=== PATIENT | female | born 1985 | race Caucasian/White ===

== ENCOUNTER → 2016-08-29 | Outpatient (REF) | payer MEDICAID, OTHER, SELFPAY ==
[2016-08-29 20:17] LABS: ALBUMIN 4.3 GM/DL (3.2-5.2); ALBUMIN/GLOBULIN RATIO 1.48 (1.00-1.93); ALKALINE PHOSPHATASE 67 U/L (45-117); ALT/SGPT 19 U/L (12-78); ANION GAP 3 MEQ/L (8-16); AST/SGOT 11 U/L (15-37); BILIRUBIN,TOTAL 0.4 MG/DL (0.2-1.0); BLOOD UREA NITROGEN 12 MG/DL (7-18); CALCIUM LEVEL 9.1 MG/DL (8.5-10.1); CARBON DIOXIDE LEVEL 30 MEQ/L (21-32); CHLORIDE LEVEL 105 MEQ/L (98-107); CHOLESTEROL LEVEL 210 MG/DL (<200); CREATININE FOR GFR 0.63 MG/DL (0.55-1.02); FREE T4 1.02 NG/DL (0.76-1.46); GLOMERULAR FILTRATION RATE > 60.0 (>60); GLUCOSE, FASTING 89 MG/DL (70-105); POTASSIUM SERUM 4.1 MEQ/L (3.5-5.1); SODIUM LEVEL 138 MEQ/L (136-145); TOTAL PROTEIN 7.2 GM/DL (6.4-8.2); TRIGLYCERIDES LEVEL 66 MG/DL (<150)
[2016-09-07 00:06] LABS: ANTI-DIURETIC HORMONE 1.2 pg/mL (0.0-4.7)
== END ==
LOC: M LAB REF 16:49
PROVIDERS: ATTEND Nurse Practitioner Family
DX: E04.0 Nontoxic diffuse goiter (principal); R19.7 Diarrhea, unspecified; R35.8 Other polyuria

== ENCOUNTER → 2016-09-28 | Outpatient (CLI) | payer OTHER ==
[~2016-09-28] VITALS: Ht 167.6 cm; Wt 56.7 kg
[~2016-09-28] MED LIST: LIDOCAINE 2% INJ 100 MG/5 ML SDV (FOR ANES.) As Ordered ONE; NS 1,000 ML IV ONE; PROPOFOL 200 MG/20 ML VIAL As Ordered ONE
--- NOTE | 2016-09-28 15:28 | ROOR ---
Patient Name: Tessy Batres Procedure Date: 09/28/2016 3:07 PM Date of : 1985 Age: 31 Room: [facility] Gender: Female Note Status: Finalized Procedure: Colonoscopy Indications: Generalized abdominal pain, Irritable bowel syndrome with constipation, Constipation Providers: Singh VELEZ MD Referring MD: Abiola IVEY NP Requesting Provider: Medicines: Monitored Anesthesia Care Complications: No immediate complications. Procedure: Pre-Anesthesia Assessment: - The heart rate, respiratory rate, oxygen saturations, blood pressure, adequacy of pulmonary ventilation, and response to care were monitored throughout the procedure. The Colonoscope was introduced through the anus and advanced to 5 cm into the ileum. The colonoscopy was performed without difficulty. The patient tolerated the procedure well. The quality of the bowel preparation was adequate. Findings: The perianal and digital rectal examinations were normal. Small Internal Hemorrhoids. The entire examined colon appeared normal on direct and retroflexion views. The terminal ileum appeared normal. Impression: - Small Internal Hemorrhoids. - The entire examined colon is normal on direct and retroflexion views. - The examined portion of the ileum was normal. - No specimens collected. Recommendation: - Continue present medications. Singh Velez MD Singh VELEZ MD 09/28/2016 3:28:07 PM This report has been signed electronically. Number of Addenda: 0 Note Initiated On: 09/28/2016 3:07 PM Estimated Blood Loss: Estimated blood loss: none.
[2016-09-28 15:55] VITALS: BP 122/82
== END | disposition home or self-care (01) ==
LOC: M OPP 14:03
PROVIDERS: ATTEND Internal Medicine Gastroenterology
DX: K58.1 Irritable bowel syndrome with constipation (principal); K64.8 Other hemorrhoids

== ENCOUNTER → 2017-02-08 | Outpatient (CLI) | payer OTHER ==
[2017-02-08 18:39] LABS: FREE T4 0.96 NG/DL (0.76-1.46)
== END ==
LOC: M SMT 11:55
PROVIDERS: ATTEND Physician Assistant Medical
DX: K59.04 Chronic idiopathic constipation (principal)

== ENCOUNTER → 2017-02-23 | Outpatient (CLI) | payer OTHER ==
[~2017-02-23] MED LIST changes: +GASTROGRAFIN SOLUTION 30ML (Q9963) As Ordered ONE; +ISOVUE-370 76% 100ML VIAL (Q9967) As Ordered ONE; -LIDOCAINE 2% INJ 100 MG/5 ML SDV (FOR ANES.) As Ordered ONE; -NS 1,000 ML IV ONE; -PROPOFOL 200 MG/20 ML VIAL As Ordered ONE
--- NOTE | 2017-02-23 15:29 | REP ---
CT abdomen and pelvis with IV and oral contrast: History: Abdominal pain. Change in bowel habits. CT contrast dose: 100 mL of intravenous Isovue 370. CT findings: Preliminary digital hose sprayer radiograph is unremarkable. The lung bases are clear. There is a small hemangioma in the right lobe of the liver near the inferior vena cava. The hemangioma measures 1.6 cm in diameter. No other focal liver lesion is seen. Spleen is unremarkable. There is a small accessory splenule anteriorly. No adrenal lesion is seen. The kidneys enhance symmetrically and show bilateral lobation, but are morphologically intact. No hydronephrosis or masses seen. No calculus is observed. No pancreatic abnormality is seen. The gallbladder is unremarkable. Small and large intestinal bowel loops are normal in the upper abdomen. A normal appendix is seen retrocecal. The uterus is retroverted and retroflexed. No adnexal pathology is seen. Urinary bladder is intact. No abdominal wall defect is observed. Bowel loops are normal in the pelvis. No bony destructive lesion is seen. Impression: No acute intra-abdominal abnormality. Normal appendix seen. Retroverted uterus. Signed by Kaden García MD 02/23/2017 03:59 P
== END ==
LOC: M RAD 12:01
PROVIDERS: ATTEND Physician Assistant Medical
DX: R10.9 Unspecified abdominal pain (principal); R19.4 Change in bowel habit

== ENCOUNTER → 2017-03-29 | Outpatient (REF) | payer OTHER | LOC: M LAB REF 17:23 | PROVIDERS: ATTEND Specialist | DX: Z12.4 Encounter for screening for malignant neoplasm of cervix (principal) ==

== ENCOUNTER 2017-05-04 07:46 | Day surgery (SDC) | payer OTHER ==
[~2017-05-04] VITALS: Ht 167.6 cm; Wt 59.4 kg
[~2017-05-04 07:46] MED LIST changes: -GASTROGRAFIN SOLUTION 30ML (Q9963) As Ordered ONE; -ISOVUE-370 76% 100ML VIAL (Q9967) As Ordered ONE; +META1.7W PO
[2017-05-04] MEDS ORDERED: LR 1,000 ML IV ONE (08:00)
[2017-05-04] MEDS ORDERED: fentaNYL 100 MCG/2 ML INJECTION (J3010) As Ordered ONE ×2 (08:05→10:27)
[2017-05-04] MEDS ORDERED: MIDAZOLAM INJ 2 MG/2 ML VIAL (J2250) As Ordered ONE (08:05)
[2017-05-04] MEDS ORDERED: ONDANSETRON 4MG/2ML VIAL (J2405) As Ordered ONE ×2 (08:05→10:27)
[2017-05-04] MEDS ORDERED: LIDOCAINE 2% INJ 100 MG/5 ML SDV (FOR ANES.) As Ordered ONE (08:05)
[2017-05-04] MEDS ORDERED: PROPOFOL 200 MG/20 ML VIAL As Ordered ONE (08:05)
[2017-05-04 08:07] LABS: MEAN CORPUSCULAR HEMOGLOBIN 29.4 pg (27.0-33.0); MEAN CORPUSCULAR HGB CONC 33.2 g/dl (32.0-36.5); MEAN CORPUSCULAR VOLUME 88.3 fl (80.0-96.0); PLATELET COUNT, AUTOMATED 295 10^3/uL (150-450); RED CELL DISTRIBUTION WIDTH 11.9 % (11.5-14.5); WHITE BLOOD COUNT 5.2 10^3/uL (4.0-10.0)
[2017-05-04 08:22] LABS: CONTROL LINE UCG INT CTR LINE PRESENT
[2017-05-04] MEDS ORDERED: BUPIVACAINE HCL 0.25% 30 ML VIAL As Ordered ONE (08:33)
[2017-05-04] MEDS ORDERED: NEOSTIGMINE 10 MG/10 ML VIAL (J2710) As Ordered ONE (09:54)
[2017-05-04] MEDS ORDERED: GLYCOPYRROLATE INJ 0.2 MG/ML 2 ML VIAL As Ordered ONE (09:54)
[2017-05-04] MEDS ORDERED: KETOROLAC 60 MG/2 ML VIAL (J1885) As Ordered ONE (09:56)
[2017-05-04] MEDS ORDERED: OXYC1TAB23 PO (10:24)
[2017-05-04] MEDS: fentaNYL 100 MCG/2 ML INJECTION (J3010) IV PRN ×4 (10:30→10:45)
[2017-05-04] MEDS ORDERED: PERCOCET 5MG/325MG TAB As Ordered ONE ×2 (11:09→11:37)
[2017-05-04] MEDS: PERCOCET 5MG/325MG TAB PO PRN ×2 (11:10→11:40)
[2017-05-04] MEDS ORDERED: MORPHINE 10 MG/ML 1ML VIAL As Ordered ONE (12:09)
[2017-05-04] MEDS: MORPHINE 10 MG/ML 1ML VIAL IV PRN ×5 (12:10→12:30)
[2017-05-04] MEDS ORDERED: PERCOCET 5MG/325MG TAB PO PRN ×2 (12:30)
[2017-05-04] MEDS ORDERED: ONDANSETRON 4MG/2ML VIAL (J2405) IV PRN (12:30)
[2017-05-04] MEDS ORDERED: LR 1,000 ML IV SCH ×2 (12:30)
[2017-05-04 13:20] VITALS: BP 102/60
--- NOTE | 2017-05-07 08:08 | RO ---
DATE OF PROCEDURE: 05/04/2017 PREOPERATIVE DIAGNOSIS: Menorrhagia. Undesired fertility. POSTOPERATIVE DIAGNOSIS: Menorrhagia. Undesired fertility. PROCEDURE: Laparoscopic tubal ligation with Falope rings, hysteroscopy and dilation and curettage (D and C). SURGEON: Dr. Chavez Steve PAIN MANAGEMENT SPECIALIST: ANESTHESIA: General endotracheal. ESTIMATED BLOOD LOSS: Minimal. URINE OUTPUT: 50 mL. FINDINGS: Normal pelvis including uterus, fallopian tubes and ovaries. Uterus is retroflexed. Normal upper abdomen including liver, stomach, intestines. Endometrial cavity with multiple small endometrial polyps. Endometrial cavity width was slightly less than 2.5 cm which precluded the use of a NovaSure endometrial ablation device. OPERATIVE SUMMARY: The patient taken to the operating room where general endotracheal anesthesia was induced. She was prepped and draped in sterile fashion in the dorsal lithotomy position. The bladder was emptied with a catheter. A sponge stick was placed in the vagina to use as a manipulator. A periumbilical incision was made with the scalpel. A Veress needle was placed through this incision while tenting up on the skin of the abdomen. Intra-abdominal location of the Veress needle was assessed by the use of a saline filled syringe. A pneumoperitoneum was created. The Veress needle was removed and a 5 mm trocar using Wystiport was placed directly into this incision. An 8 mm suprapubic port was placed under direct visualization. A blunt probe was used to survey the fallopian tubes. A Falope ring was applied to the mid portion of each fallopian tube without difficulty. An excellent application was noted. The pneumoperitoneum was released. All instruments were removed. The skin was closed with #4-0 Monocryl subcuticular sutures. Attention was turned to the vagina. A speculum was placed in the vagina. The anterior lip of the cervix was grasped with a tenaculum. The cervix was dilated with tapered dilators. Diagnostic hysteroscope using normal saline as a distention medium was placed through the internal os. Visualization of the endometrial cavity revealed the findings noted above. Sharp curettage was performed. Polyp forceps were used to grasp and remove several endometrial polyps. The endometrial cavity length was calculated at 4.0 cm. The NovaSure device was inserted. The endometrial cavity width was approximately 2.4 cm. The width of the endometrial cavity was not deemed wide enough to safely accommodate the NovaSure endometrial ablation device. A second attempt was made to insert the NovaSure device to obtain better endometrial cavity width. The second attempt was no more successful than the first. Due to the risks of proceeding with the narrow endometrial cavity, as the indicator on the NovaSure device was still in the red zone, decision was made to abort the ablation procedure. All instruments were removed. Sponge, instrument and needle counts were correct. The patient was extubated and went to the recovery room in stable condition.
== END 2017-05-04 13:40 | disposition home or self-care (01) ==
LOC: M SDC 07:46
PROVIDERS: ATTEND Specialist
DX: Z30.2 Encounter for sterilization (principal); N92.0 Excessive and frequent menstruation with regular cycle; N84.0 Polyp of corpus uteri
CPT/HCPCS: 36415; 58563; 58671; 84703; 85027; 88305; A4264; J1885; J2250; J2405; J2710; J3010

== ENCOUNTER 2019-12-08 08:15 | Day surgery (SDC) | payer OTHER ==
[~2019-12-08] VITALS: Ht 170.2 cm; Wt 59.8 kg
[~2019-12-08 08:15] MED LIST changes: +FAMO20TA PO; +LIDOCAINE 2% 100MG/5ML SDV (FOR ANES.) As Ordered ONE; -META1.7W PO; +METAMUCIL1 WAF PO; +OXYC1TAB23 PO; +propofoL 200 MG/20 ML VIAL As Ordered ONE
[2019-12-08] MEDS ORDERED: NS 1,000 ML IV ONE (09:00)
--- NOTE | 2019-12-08 09:33 | ROOR ---
Patient Name: Tessy Batres Procedure Date: 12/08/2019 9:04 AM Date of : 1985 Age: 34 Room: [facility] Gender: Female Note Status: Finalized Procedure: Upper GI endoscopy Indications: Epigastric abdominal pain, Functional Dyspepsia Providers: Singh VELEZ MD Referring MD: 1. No Referring Physician 1. No Referring Physician, Admin. Requesting Provider: Medicines: Monitored Anesthesia Care Complications: No immediate complications. Procedure: Pre-Anesthesia Assessment: - The heart rate, respiratory rate, oxygen saturations, blood pressure, adequacy of pulmonary ventilation, and response to care were monitored throughout the procedure. The Endoscope was introduced through the mouth, and advanced to the second part of duodenum. The upper GI endoscopy was accomplished without difficulty. The patient tolerated the procedure well. Findings: The esophagus was normal. The stomach was normal. The examined duodenum was normal. Biopsies for histology were taken with a cold forceps in the second portion of the duodenum for evaluation of celiac disease. Impression: - Normal esophagus. - Normal stomach. - Normal examined duodenum. - Biopsies were taken with a cold forceps for evaluation of celiac disease. Recommendation: - Observe patient's clinical course. - Await pathology results. - Telephone endoscopist for pathology results in 2 weeks. Singh Velez MD Singh VELEZ MD 12/08/2019 9:33:19 AM Electronically signed by Singh VELEZ MD Number of Addenda: 0 Note Initiated On: 12/08/2019 9:04 AM Estimated Blood Loss: Estimated blood loss: none.
--- NOTE | 2019-12-08 09:36 | ROOR ---
Patient Name: Tessy Batres Procedure Date: 12/08/2019 9:07 AM Date of : 1985 Age: 34 Room: [facility] Gender: Female Note Status: Finalized Procedure: Colonoscopy Indications: Hematochezia, Irritable bowel syndrome with constipation Providers: Singh VELEZ MD Referring MD: 1. No Referring Physician 1. No Referring Physician, Admin. Requesting Provider: Medicines: Monitored Anesthesia Care Complications: No immediate complications. Procedure: Pre-Anesthesia Assessment: - The heart rate, respiratory rate, oxygen saturations, blood pressure, adequacy of pulmonary ventilation, and response to care were monitored throughout the procedure. The Colonoscope was introduced through the anus and advanced to 10 cm into the ileum. The colonoscopy was performed without difficulty. The patient tolerated the procedure well. The quality of the bowel preparation was good. Findings: The perianal and digital rectal examinations were normal. Small Internal Hemorrhoids. The entire examined colon appeared normal on direct and retroflexion views. The terminal ileum appeared normal. Biopsies for histology were taken with a cold forceps from the entire colon for evaluation of microscopic colitis. Impression: - Small Internal Hemorrhoids. - The entire examined colon is normal on direct and retroflexion views. - The examined portion of the ileum was normal. - Biopsies were taken with a cold forceps from the entire colon for evaluation of microscopic colitis. - (Irritable Bowel Syndrome/IBS suspected.) Recommendation: - Telephone endoscopist for pathology results in 2 weeks. Singh Velez MD Singh VELEZ MD 12/08/2019 9:35:51 AM Electronically signed by Singh VELEZ MD Number of Addenda: 0 Note Initiated On: 12/08/2019 9:07 AM Estimated Blood Loss: Estimated blood loss: none.
[2019-12-08 10:03] VITALS: BP 124/67
== END 2019-12-08 10:05 | disposition home or self-care (01) ==
LOC: M OPP 08:15
PROVIDERS: ATTEND Internal Medicine Gastroenterology
DX: K92.1 Melena (principal); K58.1 Irritable bowel syndrome with constipation; K64.8 Other hemorrhoids; K30 Functional dyspepsia

== ENCOUNTER → 2020-01-02 | Outpatient (CLI) | payer OTHER ==
[~2020-01-02] MED LIST changes: -LIDOCAINE 2% 100MG/5ML SDV (FOR ANES.) As Ordered ONE; -propofoL 200 MG/20 ML VIAL As Ordered ONE
--- NOTE | 2020-02-16 09:18 | REP ---
GASTRIC EMPTYING NUCLEAR SCAN DATE: 01/02/2020. HISTORY: Early satiety, epigastric pain. TECHNIQUE/FINDINGS: Following the oral administration of 1.05 mCi of Technetium- 99m sulfur colloid into scrambled eggs and 6 ounces of water, multiple images of the upper abdomen were performed in the anterior and posterior projections for 90 minutes. Gastric activity is measured. At the end of 90 minutes, 75% of the ingested activity has emptied from the stomach. T-1/2 is calculated to be 59 minutes. This is normal. IMPRESSION: Normal gastric emptying scan. MTDD
== END ==
LOC: M RAD 07:27
PROVIDERS: ATTEND Physician Assistant Medical
DX: R11.0 Nausea (principal); R10.13 Epigastric pain; R68.81 Early satiety

== ENCOUNTER → 2021-12-16 | Outpatient (CLI) | payer OTHER ==
[~2021-12-16] MED LIST changes: +E-Z-GAS II EFFERVESCENT PACKET (SODIUM BICARB./CITRIC ACID/SIMETHICONE) As Ordered ONE; +E-Z-HD 98% w/w 340GM SUSP BTL As Ordered ONE; +E-Z-PAQUE 96% w/w SUSP 176GM BTL As Ordered ONE
== END ==
LOC: M RAD 10:05
PROVIDERS: ATTEND Physician Assistant Medical
DX: K21.9 Gastro-esophageal reflux disease without esophagitis (principal); R14.0 Abdominal distension (gaseous)

== ENCOUNTER → 2022-01-12 | Outpatient (CLI) | payer OTHER ==
[~2022-01-12] MED LIST changes: -E-Z-GAS II EFFERVESCENT PACKET (SODIUM BICARB./CITRIC ACID/SIMETHICONE) As Ordered ONE; -E-Z-HD 98% w/w 340GM SUSP BTL As Ordered ONE; -E-Z-PAQUE 96% w/w SUSP 176GM BTL As Ordered ONE
== END ==
LOC: M LABSMTC 09:36
PROVIDERS: ATTEND Anesthesiology
DX: Z01.818 Encounter for other preprocedural examination (principal); Z11.52 Encounter for screening for COVID-19

== ENCOUNTER 2022-01-17 08:33 | Day surgery (SDC) | payer OTHER ==
[~2022-01-17] VITALS: Ht 170.2 cm; Wt 58.9 kg
[~2022-01-17 08:33] MED LIST changes: +NS 1,000 ML IV ONE
[2022-01-17] MEDS ORDERED: LIDOCAINE 2% 100MG/5ML SDV (FOR ANES.) As Ordered ONE (10:34)
[2022-01-17] MEDS ORDERED: propofoL 200 MG/20 ML VIAL As Ordered ONE (10:34)
[2022-01-17] MEDS ORDERED: fentaNYL 100 MCG/2 ML INJECTION As Ordered ONE (10:44)
[2022-01-17 11:51] VITALS: BP 115/67
== END 2022-01-17 11:52 | disposition home or self-care (01) ==
LOC: M OPP 08:33
PROVIDERS: ATTEND Internal Medicine Gastroenterology
DX: R93.3 Abnormal findings on diagnostic imaging of other parts of digestive tract (principal); K21.00 Gastro-esophageal reflux disease with esophagitis, without bleeding; K59.00 Constipation, unspecified; Z79.899 Other long term (current) drug therapy; Z87.2 Personal history of diseases of the skin and subcutaneous tissue; Z80.1 Family history of malignant neoplasm of trachea, bronchus and lung
CPT/HCPCS: 43239; 88305; J3010

== ENCOUNTER → 2022-03-29 | Outpatient (CLI) | payer OTHER ==
[~2022-03-29] MED LIST changes: +GASTROGRAFIN SOLUTION 30ML As Ordered ONE; +ISOVUE-370 76% 100ML VIAL As Ordered ONE; -NS 1,000 ML IV ONE
== END ==
LOC: M RAD 07:59
PROVIDERS: ATTEND Physician Assistant Medical
DX: D18.09 Hemangioma of other sites (principal); R11.0 Nausea; R10.13 Epigastric pain; R14.0 Abdominal distension (gaseous)